=== PATIENT | male | born 1950 | race Hispanic/Latino ===

== ENCOUNTER 2018-04-14 15:44 | Inpatient (IN) | payer MEDICAID, OTHER ==
[~2018-04-14] VITALS: Ht 152.4 cm; Wt 76.7 kg
[2018-04-14 16:31] LABS: BASOPHILS % (AUTO) 0.7 % (0.0-5.0); HEMATOCRIT 44.8 % (42-54); LYMPHOCYTES % (AUTO) 14.3 % (21.0-51.0); MEAN CORPUSCULAR HEMOGLOBIN 30.7 pg (27.0-33.0); MEAN CORPUSCULAR HGB CONC 34.1 g/dL (32.0-36.0); MEAN CORPUSCULAR VOLUME 89.9 fL (79-99); MONOCYTES % (AUTO) 5.4 % (3.0-13.0); NEUTROPHILS % (AUTO) 79.6 % (40.0-77.0); PLATELET COUNT (AUTO) 231 K/uL (130-400); RED BLOOD CELL COUNT(AUTO) 4.99 MIL/uL (4.50-6.20); RED CELL DISTRIBUTION WIDTH 12.7 % (11.0-15.5); WHITE BLOOD COUNT (AUTO) 13.4 K/uL (4.8-10.8)
[2018-04-14] MEDS ORDERED: SODIUM CHLORIDE 0.9% 1000ML 1,000 ML IV ONE (16:33)
[2018-04-14] MEDS ORDERED: ONDANSETRON HCL 4 MG/2 ML VIAL ONE (16:33)
[2018-04-14 16:42] LABS: CREATININE 0.7 mg/dL (0.5-1.5); POTASSIUM 4.3 mmol/L (3.5-5.1)
[2018-04-14 16:46] LABS: ALBUMIN 3.1 g/dL (3.5-5.0); BILIRUBIN,TOTAL 0.7 mg/dL (0.2-1.0); TOTAL PROTEIN, SERUM 7.5 g/dL (6.0-8.3)
[2018-04-14 16:48] LABS: AMYLASE 25 U/L (25-115); LIPASE 76 U/L (114-286)
[2018-04-14] MEDS ORDERED: DEXTROSE 50%-WATER 50 ML DISP.SYRIN IV PRN (18:30)
[2018-04-14] MEDS ORDERED: GLUCAGON 1MG KIT 1 MG ML IM PRN (18:30)
[2018-04-14] MEDS ORDERED: ASPIRIN 81MG TAB.CHEW ONE (18:47)
[2018-04-14] MEDS ORDERED: IOHEXOL-350 75 ML VIAL IV ONE (19:12)
[2018-04-14] MEDS ORDERED: ONDANSETRON HCL 4 MG/2 ML VIAL IV PRN (19:30)
[2018-04-14] MEDS ORDERED: ACETAMINOPHEN 325 MG TAB PO PRN (19:30)
[2018-04-14 20:30] LABS: PARTIAL THROMBOPLASTIN TIME 28.5 SEC (26.3-35.5); PROTHROMBIN TIME 10.5 SEC (9.6-11.6)
[2018-04-14 20:55] LABS: HEMOGLOBIN A1C 9.2 % (4.0-6.0)
[2018-04-14] MEDS: FAMOTIDINE/PF 20 MG/2 ML VIAL IV SCH (21:00)
[2018-04-14] MEDS ORDERED: HYDRALAZINE HCL 20 MG/ML VIAL ONE (21:34)
[2018-04-14 22:25] LABS: APPEARANCE,URINE Clear (CLEAR); BILIRUBIN,URINE Negative (NEGATIVE); COLOR,URINE Yellow (YELLOW); GLUCOSE, URINE (UA) 500 mg/dL (NEGATIVE); KETONES,URINE 15 mg/dL (NEGATIVE); LEUKOCYTE ESTERASE ,URINE Small (NEGATIVE); NITRATE,URINE Negative (NEGATIVE); OCCULT BLOOD,URINE Negative (NEGATIVE); PH,URINE 6.5 (5.0-8.0); PROTEIN,URINE Negative (NEGATIVE)
[2018-04-14 22:34] LABS: AMPHET/METH SCREEN,URINE NEGATIVE (NEGATIVE); BARBITURATE SCREEN, URINE NEGATIVE (NEGATIVE); BENZODIAZEPINES SCREEN,URINE NEGATIVE (NEGATIVE); CANNABINOID SCREEN,URINE NEGATIVE (NEGATIVE); COCAINE SCREEN,URINE NEGATIVE (NEGATIVE); OPIATE SCREEN,URINE NEGATIVE (NEGATIVE); PHENCYCLIDINE SCREEN,URINE NEGATIVE (NEGATIVE)
[2018-04-14 23:10] LABS: BACTERIA,URINE Few /HPF (None Seen); TRICHOMONAS,URINE Few /LPF (None Seen)
[2018-04-14 23:11] LABS: SQUAMOUS EPITHELIAL CELL,UR 0-2 /HPF (0-2)
[2018-04-14 23:40] LABS: TROPONIN I 0.42 ng/mL (0.00-0.06)
[2018-04-14 23:46] VITALS: BP 155/80
[2018-04-15] VITALS (22 sets, daily range): BP systolic 120–173; BP diastolic 43–95
[2018-04-15] MEDS: SODIUM CHLORIDE 0.9% 1000ML 1,000 ML IV SCH ×3 (03:49→19:00)
[2018-04-15] MEDS: LEVOFLOXACIN 500 MG/D5W 100 ML 100 ML IV SCH (03:49)
[2018-04-15] MEDS: INSULIN HUMULIN R 100 UNIT/ML 3ML SQ SCH ×4 (05:31→21:12)
[2018-04-15 05:32] LABS: BASOPHILS % (AUTO) 0.7 % (0.0-5.0); HEMATOCRIT 42.7 % (42-54); LYMPHOCYTES % (AUTO) 21.3 % (21.0-51.0); MEAN CORPUSCULAR HGB CONC 33.8 g/dL (32.0-36.0); MEAN CORPUSCULAR VOLUME 88.8 fL (79-99); MONOCYTES % (AUTO) 7.2 % (3.0-13.0); NEUTROPHILS % (AUTO) 70.8 % (40.0-77.0); PLATELET COUNT (AUTO) 215 K/uL (130-400); RED BLOOD CELL COUNT(AUTO) 4.81 MIL/uL (4.50-6.20); RED CELL DISTRIBUTION WIDTH 12.6 % (11.0-15.5); WHITE BLOOD COUNT (AUTO) 14.3 K/uL (4.8-10.8)
[2018-04-15 06:04] LABS: ALBUMIN 2.9 g/dL (3.5-5.0); BILIRUBIN,TOTAL 0.7 mg/dL (0.2-1.0); CREATININE 0.7 mg/dL (0.5-1.5); POTASSIUM 3.7 mmol/L (3.5-5.1); TROPONIN I 0.4 ng/mL (0.00-0.06)
[2018-04-15] MEDS: FAMOTIDINE/PF 20 MG/2 ML VIAL IV SCH ×2 (10:02→21:07)
[2018-04-15] MEDS ORDERED: LEVETIRACETAM 1,000 MG in SODIUM CHLORIDE 0.9% 100 ML IV SCH (10:45)
[2018-04-15] MEDS ORDERED: COMPOUND IV MISC 1 EACH IVSOLN MISC PRN (12:00)
[2018-04-15] MEDS ORDERED: NICARDIPINE HCL 100 MG in SODIUM CHLORIDE 0.9% 60 ML IV SCH (13:45)
[2018-04-15] MEDS: HYDRALAZINE HCL 20 MG/ML VIAL IM PRN (14:38)
[2018-04-15] MEDS ORDERED: METF-444 PO (16:33)
[2018-04-15] MEDS ORDERED: GLIP10TA9 PO (16:33)
[2018-04-15] MEDS ORDERED: LISI40TA4 PO (16:33)
[2018-04-15] MEDS: GLIPIZIDE 5 MG TABLET PO SCH (17:00)
[2018-04-15] MEDS: ATORVASTATIN CALCIUM 40 MG TABLET PO SCH (21:06)
[2018-04-15] MEDS: LEVETIRACETAM 500 MG in SODIUM CHLORIDE 0.9% 100 ML IV SCH (21:08)
[2018-04-16] VITALS (22 sets, daily range): BP systolic 123–163; BP diastolic 53–88
[2018-04-16] MEDS: SODIUM CHLORIDE 0.9% 1000ML 1,000 ML IV SCH ×3 (01:50→20:37)
[2018-04-16] MEDS: LEVOFLOXACIN 500 MG/D5W 100 ML 100 ML IV SCH (02:51)
[2018-04-16] MEDS: INSULIN HUMULIN R 100 UNIT/ML 3ML SQ SCH ×4 (07:30→20:34)
[2018-04-16] MEDS: FAMOTIDINE/PF 20 MG/2 ML VIAL IV SCH ×2 (08:21→20:40)
[2018-04-16] MEDS: LISINOPRIL 40 MG TABLET PO SCH (08:22)
[2018-04-16] MEDS: GLIPIZIDE 5 MG TABLET PO SCH ×2 (08:22→17:06)
[2018-04-16] MEDS ORDERED: LISINOPRIL 10 MG TABLET PO SCH (09:00)
[2018-04-16] MEDS: LEVETIRACETAM 500 MG in SODIUM CHLORIDE 0.9% 100 ML IV SCH ×2 (09:00→20:36)
[2018-04-16] MEDS ORDERED: METFORMIN HCL 500 MG TAB.SR.24H PO SCH (12:00)
[2018-04-16] MEDS: ATORVASTATIN CALCIUM 40 MG TABLET PO SCH (20:35)
[2018-04-16] MEDS: HYDRALAZINE HCL 20 MG/ML VIAL IM PRN (20:41)
[2018-04-17] VITALS (12 sets, daily range): BP systolic 127–159; BP diastolic 53–94
[2018-04-17] MEDS: HYDRALAZINE HCL 20 MG/ML VIAL IM PRN (03:05)
[2018-04-17] MEDS: INSULIN HUMULIN R 100 UNIT/ML 3ML SQ SCH ×4 (05:42→21:00)
[2018-04-17] MEDS: SODIUM CHLORIDE 0.9% 1000ML 1,000 ML IV SCH ×2 (05:56→15:27)
[2018-04-17] MEDS: GLIPIZIDE 5 MG TABLET PO SCH ×2 (08:45→15:27)
[2018-04-17] MEDS: ASPIRIN 81MG TAB.CHEW PO SCH (08:45)
[2018-04-17] MEDS: LISINOPRIL 40 MG TABLET PO SCH (08:46)
[2018-04-17 09:26] LABS: MEAN CORPUSCULAR HGB CONC 33.5 g/dL (32.0-36.0); MEAN CORPUSCULAR VOLUME 89.6 fL (79-99); NUCLEATED RED BLOOD CELLS 0.1 % (0.0-0.19); PLATELET COUNT (AUTO) 215 K/uL (130-400); RED BLOOD CELL COUNT(AUTO) 5.13 MIL/uL (4.50-6.20); RED CELL DISTRIBUTION WIDTH 12.9 % (11.0-15.5); WHITE BLOOD COUNT (AUTO) 9.1 K/uL (4.8-10.8)
[2018-04-17 09:36] LABS: CREATININE 0.8 mg/dL (0.5-1.5); MAGNESIUM 2.1 mg/dL (1.80-2.40); PHOSPHORUS 2.7 mg/dL (2.5-4.9); POTASSIUM 3.9 mmol/L (3.5-5.1)
[2018-04-17] MEDS: LEVETIRACETAM 500 MG in SODIUM CHLORIDE 0.9% 100 ML IV SCH ×2 (10:00→21:12)
[2018-04-17] MEDS: FAMOTIDINE/PF 20 MG/2 ML VIAL IV SCH ×2 (10:01→21:12)
[2018-04-17] MEDS: ATORVASTATIN CALCIUM 40 MG TABLET PO SCH (21:12)
[2018-04-18] MEDS: SODIUM CHLORIDE 0.9% 1000ML 1,000 ML IV SCH (02:30)
[2018-04-18 03:00] VITALS: BP 149/78
[2018-04-18] MEDS: INSULIN HUMULIN R 100 UNIT/ML 3ML SQ SCH (06:53)
[2018-04-18 07:26] VITALS: BP 144/72
[2018-04-18] MEDS: FAMOTIDINE/PF 20 MG/2 ML VIAL IV SCH (07:59)
[2018-04-18] MEDS: GLIPIZIDE 5 MG TABLET PO SCH (07:59)
[2018-04-18] MEDS: ASPIRIN 81MG TAB.CHEW PO SCH (07:59)
[2018-04-18] MEDS: LISINOPRIL 40 MG TABLET PO SCH (07:59)
[2018-04-18] MEDS: LEVETIRACETAM 500 MG in SODIUM CHLORIDE 0.9% 100 ML IV SCH (08:22)
[2018-04-18 11:44] VITALS: BP 142/87
[2018-04-18] MEDS ORDERED: ATOR40TA69 PO (16:12)
[2018-04-18] MEDS ORDERED: ASPI-1005 PO (16:12)
[2018-04-18] MEDS ORDERED: HYDR25TA PO (16:12)
[2018-04-18] MEDS ORDERED: METFORMIN HCL 500 MG TABLET PO SCH (17:00)
[2018-04-18] MEDS ORDERED: LEVETIRACETAM 500 MG TABLET PO ONE (17:29)
== END 2018-04-18 17:36 | disposition home or self-care (01) | DRG 45 ==
LOC: EDH 15:44 → EDHIP 15:45 → 2AH 22:47 → 2BH 04-15 11:03 → 2AH 04-17 15:57
PROVIDERS: ADMIT Internal Medicine; ATTEND Internal Medicine
DX: I63.432 Cerebral infarction due to embolism of left posterior cerebral artery (principal); I62.9 Nontraumatic intracranial hemorrhage, unspecified; G93.6 Cerebral edema; E11.65 Type 2 diabetes mellitus with hyperglycemia; D72.829 Elevated white blood cell count, unspecified; I10 Essential (primary) hypertension; E78.2 Mixed hyperlipidemia; H54.7 Unspecified visual loss; I25.10 Atherosclerotic heart disease of native coronary artery without angina pectoris; K57.30 Diverticulosis of large intestine without perforation or abscess without bleeding; I45.4 Nonspecific intraventricular block; R26.9 Unspecified abnormalities of gait and mobility; F19.10 Other psychoactive substance abuse, uncomplicated; Z86.73 Personal history of transient ischemic attack (TIA), and cerebral infarction without residual deficits; Z91.19 Patient's noncompliance with other medical treatment and regimen; Z95.1 Presence of aortocoronary bypass graft
CPT/HCPCS: 36415; 70450; 70544; 70547; 70551; 71045; 74176; 80048; 80053; 80061; 80305; 81001; 82150; 82550; 82948; 83036; 83690; 83735; 83874; 84100; 84484; 85025; 85027; 85610; 85730; 87040; 87088; 92522; 92610; 93005; 93306; J0360; J1815; J1953; J1956; J2405; J3490; J7030; Q9967

== ENCOUNTER 2019-01-08 01:16 | Observation (INO) | payer MEDICARE ==
[~2019-01-08] VITALS: Ht 165.1 cm; Wt 79.4 kg
[~2019-01-08 01:16] MED LIST: ASPI-1005 PO; ATOR40TA69 PO; GLIP10TA9 PO; HYDR25TA PO; LISI40TA4 PO; METF-444 PO
[2019-01-08 01:42] LABS: BASOPHILS % (AUTO) 0.3 % (0.0-5.0); EOSINOPHILS % (AUTO) 0.5 % (0.0-8.0); HEMATOCRIT 35.2 % (42-54); MEAN CORPUSCULAR HEMOGLOBIN 31.7 pg (27.0-33.0); MEAN CORPUSCULAR HGB CONC 34.9 g/dL (32.0-36.0); MEAN CORPUSCULAR VOLUME 90.9 fL (79-99); NEUTROPHILS % (AUTO) 45.2 % (40.0-77.0); PLATELET COUNT (AUTO) 201 K/uL (130-400); RED BLOOD CELL COUNT(AUTO) 3.87 MIL/uL (4.50-6.20); RED CELL DISTRIBUTION WIDTH 12.3 % (11.0-15.5); WHITE BLOOD COUNT (AUTO) 8.9 K/uL (4.8-10.8)
[2019-01-08 01:50] LABS: POTASSIUM 3.4 mmol/L (3.5-5.1)
[2019-01-08 01:59] LABS: ALBUMIN 2.9 g/dL (3.5-5.0); BILIRUBIN,TOTAL 0.4 mg/dL (0.2-1.0); TOTAL PROTEIN, SERUM 6.3 g/dL (6.0-8.3)
[2019-01-08 03:41] LABS: INR 1.02 (0.85-1.15); PARTIAL THROMBOPLASTIN TIME 28.9 SEC (26.3-35.5); PROTHROMBIN TIME 10.7 SEC (9.6-11.6)
[2019-01-08] MEDS ORDERED: ASPIRIN 325 MG TABLET ONE (04:05)
[2019-01-08 04:34] LABS: CREATINE KINASE, TOTAL 198 U/L (21-232); LIPASE 181 U/L (114-286)
[2019-01-08] MEDS: CALCIUM ACETATE 667 MG CAPSULE PO SCH (05:15)
[2019-01-08] MEDS ORDERED: MORPHINE SULFATE 2 MG/ML 1ML SYG IM PRN ×2 (05:15)
[2019-01-08] MEDS ORDERED: SODIUM CHLORIDE 0.9% 1000ML 1,000 ML IV SCH (05:31)
[2019-01-08] MEDS ORDERED: MORPHINE SULFATE 4 MG/1ML SYG IV PRN (05:45)
[2019-01-08] MEDS ORDERED: MORPHINE SULFATE 2 MG/ML 1ML SYG IV PRN (05:45)
[2019-01-08] MEDS ORDERED: CALCIUM ACETATE 667 MG CAPSULE PO ONE (05:55)
[2019-01-08 06:08] LABS: BASOPHILS % (AUTO) 0.2 % (0.0-5.0); EOSINOPHILS % (AUTO) 1.1 % (0.0-8.0); HEMATOCRIT 37.3 % (42-54); LYMPHOCYTES % (AUTO) 39.5 % (21.0-51.0); MEAN CORPUSCULAR HEMOGLOBIN 31.2 pg (27.0-33.0); MEAN CORPUSCULAR HGB CONC 34.3 g/dL (32.0-36.0); MEAN CORPUSCULAR VOLUME 90.8 fL (79-99); MONOCYTES % (AUTO) 7.8 % (3.0-13.0); NEUTROPHILS % (AUTO) 51.4 % (40.0-77.0); PLATELET COUNT (AUTO) 186 K/uL (130-400); RED BLOOD CELL COUNT(AUTO) 4.11 MIL/uL (4.50-6.20); RED CELL DISTRIBUTION WIDTH 12.7 % (11.0-15.5); WHITE BLOOD COUNT (AUTO) 8.6 K/uL (4.8-10.8)
[2019-01-08 06:19] LABS: CREATININE 0.9 mg/dL (0.5-1.5); POTASSIUM 3.9 mmol/L (3.5-5.1)
[2019-01-08] MEDS ORDERED: CHLORDIAZEPOXIDE HCL 25 MG CAP PO PRN ×2 (07:15)
[2019-01-08] MEDS ORDERED: PHARMACY COMMUNICATION MISC PRN (07:15)
[2019-01-08] MEDS: THIAMINE HCL 100 MG, FOLIC ACID 1 MG, M.V.I. IV [ADULT] 10 ML in SODIUM CHLORIDE 0.9% 1... IV SCH (07:15)
[2019-01-08] MEDS ORDERED: LORAZEPAM 2 MG/ML 1 ML VIAL IVP PRN ×2 (07:15)
[2019-01-08] MEDS: INSULIN HUMULIN R 100 UNIT/ML 3ML SQ SCH ×4 (07:30→21:00)
[2019-01-08] MEDS ORDERED: ENOXAPARIN SODIUM 30 MG/0.3 ML SQ ONE (07:55)
[2019-01-08] MEDS ORDERED: METOPROLOL TARTRATE 25 MG TAB ONE (07:55)
[2019-01-08] MEDS ORDERED: FAMOTIDINE/PF 20 MG/2 ML VIAL IV ONE (07:56)
[2019-01-08] MEDS ORDERED: SODIUM CHLORIDE 0.9% 1000ML 1,000 ML IV ONE (07:56)
[2019-01-08 08:05] LABS: HEMOGLOBIN A1C 9.5 % (4.0-6.0)
[2019-01-08 08:37] LABS: MAGNESIUM 1.8 mg/dL (1.80-2.40); PHOSPHORUS 3.9 mg/dL (2.5-4.9)
[2019-01-08] MEDS ORDERED: THIAMINE HCL 100 MG/ML 2ML VIAL ONE (08:38)
[2019-01-08] MEDS ORDERED: FOLIC ACID 5 MG/ML 10 ML VIAL ONE (08:39)
[2019-01-08] MEDS ORDERED: M.V.I. IV [ADULT] 10 ML VIAL IV ONE (08:39)
[2019-01-08] MEDS ORDERED: ENOXAPARIN SODIUM 30 MG/0.3 ML SQ SCH (09:00)
[2019-01-08] MEDS: THIAMINE HCL 100 MG/ML 2ML VIAL IM SCH (09:00)
[2019-01-08 12:19] VITALS: BP 140/71
--- NOTE | 2019-01-08 12:30 | NUR ---
NOTE ARRIVED FROM ER. WAS BROUGHT FROM A BAR WHERE HE HAD BEEN DRINKING AND PASSED OUT AT THE BAR. HE SAYS HE FELL ASLEEP. TROPONINS HAVE BEEN ELEVATED 0.12,0.15 DUE FOR ANOTHER CHECK AT 1400. NO N/V OR OTHER PROBLEMS. NO N/V CHEST PAIN OR SOB. BBS CLEAR. TELEMETRY NSR.
[2019-01-08 15:05] LABS: AMPHET/METH SCREEN,URINE NEGATIVE (NEGATIVE); BARBITURATE SCREEN, URINE NEGATIVE (NEGATIVE); BENZODIAZEPINES SCREEN,URINE NEGATIVE (NEGATIVE); CANNABINOID SCREEN,URINE NEGATIVE (NEGATIVE); COCAINE SCREEN,URINE POSITIVE (NEGATIVE); OPIATE SCREEN,URINE NEGATIVE (NEGATIVE); PHENCYCLIDINE SCREEN,URINE NEGATIVE (NEGATIVE)
[2019-01-08 15:55] VITALS: BP 167/72
[2019-01-08] MEDS: FAMOTIDINE/PF 20 MG/2 ML VIAL IV SCH ×2 (18:07→21:11)
[2019-01-08] MEDS: METOPROLOL TARTRATE 25 MG TAB PO SCH ×2 (18:08→21:11)
[2019-01-08] MEDS: MULTIVITAMIN TABLET PO SCH (18:08)
[2019-01-08] MEDS: ENOXAPARIN SODIUM 30 MG/0.3 ML SQ SCH (18:09)
[2019-01-08] MEDS: FOLIC ACID 1 MG TABLET PO SCH (18:09)
--- NOTE | 2019-01-08 18:45 | NUR ---
NOTE TRANSFERRED TO ROOM 329 FOR CONTINUATION OF CARE. STABLE UPON LEAVING. NO DISTRESS OR SOB. NO CHEST PAIN.
[2019-01-08] MEDS ORDERED: HYDRALAZINE HCL 20 MG/ML VIAL IV PRN (19:15)
[2019-01-08 19:45] VITALS: BP 127/63
[2019-01-08] MEDS ORDERED: POTASSIUM CHLORIDE 20MEQ/100ML 100 ML IV PRN (20:30)
[2019-01-08] MEDS ORDERED: POTASSIUM CHLORIDE 20 MEQ ERTAB PO PRN (20:30)
[2019-01-08] MEDS ORDERED: POTASSIUM CHLORIDE 10% ELIXIR 20 MEQ/15 ML UDCUP PO PRN (20:30)
[2019-01-08] MEDS ORDERED: MAGNESIUM 2GM PREMIX 50ML 50 ML IV PRN (20:30)
[2019-01-08] MEDS ORDERED: LIDOCAINE HCL-MPF 1% 2ML VIAL IV PRN (20:30)
[2019-01-08 23:20] VITALS: BP 138/71
[2019-01-09 04:00] VITALS: BP 166/76
[2019-01-09 04:51] LABS: HEMATOCRIT 35.9 % (42-54); MEAN CORPUSCULAR HEMOGLOBIN 31.2 pg (27.0-33.0); MEAN CORPUSCULAR HGB CONC 34.9 g/dL (32.0-36.0); MEAN CORPUSCULAR VOLUME 89.5 fL (79-99); PLATELET COUNT (AUTO) 174 K/uL (130-400); RED BLOOD CELL COUNT(AUTO) 4.01 MIL/uL (4.50-6.20); RED CELL DISTRIBUTION WIDTH 12.8 % (11.0-15.5)
[2019-01-09 05:12] LABS: CREATININE 1.1 mg/dL (0.5-1.5); MAGNESIUM 2.3 mg/dL (1.80-2.40); TROPONIN I 0.15 ng/mL (0.00-0.06)
[2019-01-09] MEDS: CALCIUM ACETATE 667 MG CAPSULE PO SCH (05:15)
[2019-01-09 07:00] VITALS: BP 167/77
[2019-01-09] MEDS: INSULIN HUMULIN R 100 UNIT/ML 3ML SQ SCH ×2 (07:12→11:13)
[2019-01-09] MEDS: THIAMINE HCL 100 MG, FOLIC ACID 1 MG, M.V.I. IV [ADULT] 10 ML in SODIUM CHLORIDE 0.9% 1... IV SCH (07:13)
[2019-01-09] MEDS: THIAMINE HCL 100 MG/ML 2ML VIAL IM SCH (08:28)
[2019-01-09] MEDS: MULTIVITAMIN TABLET PO SCH (08:29)
[2019-01-09] MEDS: FOLIC ACID 1 MG TABLET PO SCH (08:29)
[2019-01-09] MEDS ORDERED: ATOR10 PO (09:01)
[2019-01-09] MEDS ORDERED: LISI-617 PO (09:01)
[2019-01-09] MEDS ORDERED: METO25 PO (09:01)
[2019-01-09] MEDS ORDERED: ASPI-555 PO (09:01)
[2019-01-09] MEDS: FAMOTIDINE/PF 20 MG/2 ML VIAL IV SCH (11:12)
[2019-01-09] MEDS: ENOXAPARIN SODIUM 30 MG/0.3 ML SQ SCH (11:12)
[2019-01-09] MEDS: METOPROLOL TARTRATE 25 MG TAB PO SCH (11:13)
[2019-01-09 11:53] VITALS: BP 178/78
[2019-01-09 12:23] VITALS: BP 155/76
== END 2019-01-09 13:50 | disposition home or self-care (01) ==
LOC: EDH 01:16 → EDHIP 05:31 → 4BH 12:02 → 3AH 18:53
PROVIDERS: ADMIT Internal Medicine; ATTEND Internal Medicine
DX: F10.229 Alcohol dependence with intoxication, unspecified (principal); R79.89 Other specified abnormal findings of blood chemistry; E11.65 Type 2 diabetes mellitus with hyperglycemia; E46 Unspecified protein-calorie malnutrition; E86.1 Hypovolemia; I25.10 Atherosclerotic heart disease of native coronary artery without angina pectoris; E83.51 Hypocalcemia; D64.9 Anemia, unspecified; E87.1 Hypo-osmolality and hyponatremia; E87.5 Hyperkalemia; I45.2 Bifascicular block; E87.6 Hypokalemia; I10 Essential (primary) hypertension; Z95.1 Presence of aortocoronary bypass graft; Z79.82 Long term (current) use of aspirin; Z79.84 Long term (current) use of oral hypoglycemic drugs; Z79.899 Other long term (current) drug therapy; Y90.8 Blood alcohol level of 240 mg/100 ml or more
CPT/HCPCS: 36415 ×2; 71045; 80048; 80053; 80305; 82550 ×3; 82948 ×5; 83036; 83540; 83690; 83735 ×2; 83874; 83880; 84100; 84484 ×4; 85025 ×2; 85027; 85610; 85730; 93005 ×4; 96365; 96366 ×2; 96367; 96372 ×2; 96375; 96376 ×2; 99284; G0378 ×32; G0480; J1650 ×3; J1815 ×2; J3411 ×2; J3475; J3490 ×6; J7030 ×2